=== PATIENT | female | born 1985 | race Caucasian/White ===

== ENCOUNTER 2018-04-16 18:39 | Emergency (ER) | payer MEDICAID ==
[~2018-04-16] VITALS: Ht 162.6 cm; Wt 55.3 kg
[2018-04-16 18:41] VITALS: BP 111/62; Ht 162.6 cm; Wt 55.3 kg
== END 2018-04-16 20:50 | disposition home or self-care (01) ==
LOC: ED 18:39
DX: S43.402A Unspecified sprain of left shoulder joint, initial encounter (principal); Z88.0 Allergy status to penicillin; Z88.6 Allergy status to analgesic agent; E03.9 Hypothyroidism, unspecified; X50.0XXA Overexertion from strenuous movement or load, initial encounter; Y93.89 Activity, other specified; Y92.89 Other specified places as the place of occurrence of the external cause; Y99.8 Other external cause status

== ENCOUNTER 2019-05-05 17:46 | Emergency (ER) | payer MEDICAID ==
[~2019-05-05] VITALS: Ht 160 cm; Wt 57.6 kg
[2019-05-05 17:59] VITALS: Ht 160 cm; Wt 57.6 kg
[2019-05-05 18:45] LABS: microscopic required? YES; urine erythrocyte 1+ (NEGATIVE)
[2019-05-05 19:18] VITALS: BP 115/93
== END 2019-05-05 19:18 | disposition home or self-care (01) ==
LOC: ED 17:46
DX: N12 Tubulo-interstitial nephritis, not specified as acute or chronic (principal); E03.9 Hypothyroidism, unspecified; Z88.6 Allergy status to analgesic agent; Z88.8 Allergy status to other drugs, medicaments and biological substances